=== PATIENT | male | born 1970 | race Hispanic/Latino ===

== ENCOUNTER 2019-01-13 23:33 | Emergency (ER) | payer SELFPAY ==
[2019-01-13 23:47] VITALS: BMI 21.5
[2019-01-13 23:49] VITALS: BP 123/74; TEMP 98.3
[2019-01-13] MEDS ORDERED: DiphenhydrAMINE 50 mg/ml Inj IVP STA (23:54)
--- NOTE | 2019-01-14 00:38 | ED PDOC ---
HPI: Skin/Bite Injury Time Seen by Provider: 01/13/19 23:54 Chief Complaint (Nursing): Allergic Reaction Chief Complaint (Provider): Allergic Reaction History Per: Patient History/Exam Limitations: no limitations Onset/Duration Of Symptoms: Sudden Onset Current Symptoms Are (Timing): Still Present Quality Of Symptoms: Itching, Swollen Additional Complaint(s): 48 year old male presents to the ED for evaluation of sudden onset allergic reaction just prior to arrival. Patient reports he sustained a small scratch in his nose and took a tablet of Augmentin that he had left over. He soon developed a diffuse, itchy, red rash associated with chest tightness, lip and throat itching, and lip swelling. He took 50 mg Benadryl and 10 mg Singulair before arrival. Denies history of allergies, new foods, tongue swelling, vomiting and diarrhea. PMD: Dr. Ellis Pinto Past Medical History Reviewed: Historical Data, Nursing Documentation, Vital Signs Vital Signs: Last Vital Signs Temp 98.3 F 01/13/19 23:46 Pulse 80 01/13/19 23:46 Resp 18 01/13/19 23:46 BP 123/74 01/13/19 23:46 Pulse Ox 97 01/13/19 23:46 - Medical History PMH: No Chronic Diseases - Surgical History Surgical History: No Surg Hx - Family History Family History: States: No Known Family Hx - Social History Current smoker - smoking cessation education provided: No - Home Medications Home Medications: Ambulatory Orders Medication Instructions Recorded DiphenhydrAMINE [Benadryl] 25 mg PO Q6 PRN #20 cap 01/14/19 Famotidine [Pepcid] 40 mg PO DAILY #14 tablet 01/14/19 predniSONE [predniSONE Tab] 60 mg PO DAILY 4 Days tab 01/14/19 - Allergies Allergies/Adverse Reactions: Allergies Allergy/AdvReac Type Severity Reaction Status Date / Time No Known Allergies Allergy Verified 01/13/19 23:46 Review of Systems ROS Statement: Except As Marked, All Systems Reviewed And Found Negative ENT: Positive for: Other (lip and throat itching). Negative for: Throat Swelling Cardiovascular: Positive for: Chest Pain (tightness) Gastrointestinal: Negative for: Nausea, Vomiting Skin: Positive for: Rash (diffuse, itchy and red) Physical Exam - Reviewed Nursing Documentation Reviewed: Yes Vital Signs Reviewed: Yes - Physical Exam Appears: Positive for: Uncomfortable, In Acute Distress Head Exam: Positive for: ATRAUMATIC, NORMAL INSPECTION, NORMOCEPHALIC Skin: Positive for: Dry, Rash (Urticarial rash to extremities, trunk and face with erythema and edema to lips and tongue) Eye Exam: Positive for: EOMI, Normal appearance, PERRL ENT: Negative for: Pharyngeal Erythema (or edema) Neck: Positive for: Normal, Painless ROM, Supple Cardiovascular/Chest: Positive for: Regular Rate, Rhythm. Negative for: Murmur Respiratory: Positive for: Normal Breath Sounds. Negative for: Wheezing, Respiratory Distress Gastrointestinal/Abdominal: Positive for: Normal Exam, Soft, Other (rash present on trunk). Negative for: Tenderness Extremity: Positive for: Normal ROM (upper and lower extremities). Negative for: Deformity Neurologic/Psych: Positive for: Alert, Oriented (x 3). Negative for: Motor/Sensory Deficits - ECG O2 Sat by Pulse Oximetry: 97 (RA) Pulse Ox Interpretation: Normal Medical Decision Making Medical Decision Makin:54 Impression: allergic reaction Initial Plan: --Benadryl 25 mg IVP --Pepcid 40 mg IVP --Solu-medrol 125 mg IVP 00:30 Patient will be endorsed to Dr. Valencia pending reevaluation and final disposition. Scribe Attestation: Documented by Aleksandra Norris acting as a scribe for Do Ingram MD Provider Scribe Attestation: All medical record entries made by the Scribe were at my direction and personally dictated by me. I have reviewed the chart and agree that the record accurately reflects my personal performance of the history, physical exam, medical decision making, and the department course for this patient. I have also personally directed, reviewed, and agree with the discharge instructions and disposition. Disposition - Clinical Impression Clinical Impression: Allergic reaction - Patient ED Disposition Is Patient to be Admitted: Transfer of Care - Disposition Referrals: Juan F Polo MD [Staff Provider] - Disposition: Transfer of Care Disposition Time: 00:30 Condition: IMPROVED Additional Instructions: Follow up with primary medical doctor. Take Prednisone daily as prescribed. Take Benadryl and Pepcid as needed for rash. Return to the emergency department if symptoms worsen or if new symptoms develop. Follow up with primary doctor or inventory specialist in one to two weeks. Prescriptions: DiphenhydrAMINE [Benadryl] 25 mg PO Q6 PRN #20 cap PRN Reason: Rash Famotidine [Pepcid] 40 mg PO DAILY #14 tablet predniSONE [predniSONE Tab] 60 mg PO DAILY 4 Days tab Instructions: Allergy Skin Testing, Drug Allergy Forms: [employer] [facility] (Guatemalan) Print Language: FAROESE Patient Signed Over To: Jordana Valencia
--- NOTE | 2019-01-14 00:50 | ED PDOC ---
- ECG O2 Sat by Pulse Oximetry: 97 (RA) Pulse Ox Interpretation: Normal Medical Decision Making Medical Decision Makin:30 Patient endorsed to this provider by Dr. Ingram pending full ER workup and final disposition. 01:03 Patient reports complete resolution of symptoms. Will be discharged with prescriptions of Pepcid, Benadryl and Prednisone. Return parameters discussed. Scribe Attestation: Documented by Aleksandra Norris acting as a scribe for Jordana Valencia MD Provider Scribe Attestation: All medical record entries made by the Scribe were at my direction and p ersonally dictated by me. I have reviewed the chart and agree that the record accurately reflects my personal performance of the history, physical exam, medical decision making, and the department course for this patient. I have also personally directed, reviewed, and agree with the discharge instructions and disposition. Disposition - Clinical Impression Clinical Impression: Allergic reaction - POA Present On Arrival: None - Disposition Referrals: Juan F Polo MD [Staff Provider] - Disposition: Routine/Home Disposition Time: 01:05 Condition: IMPROVED Additional Instructions: Follow up with primary medical doctor. Take Prednisone daily as prescribed. Take Benadryl and Pepcid as needed for rash. Return to the emergency department if symptoms worsen or if new symptoms develop. Follow up with primary doctor or renal medicine specialist in one to two weeks. Prescriptions: DiphenhydrAMINE [Benadryl] 25 mg PO Q6 PRN #20 cap PRN Reason: Rash Famotidine [Pepcid] 40 mg PO DAILY #14 tablet predniSONE [predniSONE Tab] 60 mg PO DAILY 4 Days tab Instructions: Allergy Skin Testing, Drug Allergy Forms: [employer] (Estonian) Print Language: DIVEHI
[2019-01-14 04:17] VITALS: PULSE 62; RESP 15
[2019-01-14 05:45] VITALS: O2SAT 97
== END 2019-01-14 01:30 | disposition home or self-care (01) ==
LOC: H.ER 23:33
DX: T78.40XA Allergy, unspecified, initial encounter (principal)
CPT/HCPCS: 96374; 96375; 99283; J1200; J2930